=== PATIENT | female | born 1970 | race African-American/Black ===

== ENCOUNTER 2024-11-25 13:42 | Emergency (ER) | payer MEDICAID, SELFPAY ==
[2024-11-25] VITALS (15 sets, daily range): BP systolic 101–141; BP diastolic 56–93; PULSE 57–73; TEMP 36.4; O2SAT 96–100; BMI 35.5
--- NOTE | 2024-11-25 13:49 | ECG_ITS ---
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 Measurements Intervals [place] Rate: 69 P: 50 NV: 152 QRS: 83 QRSD: 90 T: 35 QT: 414 QTc: 433 Interpretive Statements 1100 Sinus rhythm 2420 RSR (QR) in lead V1/V2, consistent with right ventricular conduction delay 9130 borderline ECG No previous ECG available for comparison Electronically Signed On 11-26-2024 19:17:56 EDT by ROBIN MURPHY M.D.
--- NOTE | 2024-11-25 13:50 | ED_ITS ---
HPI - Chest Pain General Chief Complaint: Chest Pain Stated Complaint: CHEST PAIN Time Seen by Provider: 11/25/24 13:49 Source: patient Mode of arrival: walk-in History of Present Illness HPI narrative: Patient is a 54-year-old female brought to the emergency department by ambulance for the evaluation of chest pain that began 1 hour ago. She is currently a resident at an inpatient detox facility. She was in a group session when she de veloped pain in the chest that does not radiate. She reports that across the upper chest and retrosternal. She states it is worse with inspiration. She smokes about 3 cigarettes a day, she has cut down in the last month from 1 pack/day. She states she has a history of high cholesterol although she is not prescribed any medications for this. She states she takes a diuretic for swelling but does not have a history of high blood pressure. She reports a family history of coronary artery disease with her mother who was approximately the patient's age when she required a heart catheterization. Patient denies fevers, cough, congestion, shortness of breath, and she states that her peripheral edema to the legs has improved substantially with the diuretic. She received aspirin from EMS and 1 sublingual nitro which improved her pain from a 9 to 5 out of 10 Related Data Home Medications ?Medication ?Instructions ?Recorded ?Confirmed cariprazine 1.5 mg capsule 1.5 mg PO Q24H 11/25/24 11/25/24 (Vraylar) escitalopram oxalate 5 mg tablet 5 mg PO DAILY 11/25/24 11/25/24 folic acid 1 mg tablet 1 mg PO DAILY 11/25/24 11/25/24 levetiracetam 250 mg tablet 250 mg PO Q12H 11/25/24 11/25/24 omeprazole 20 mg capsule,delayed 20 mg PO DAILY 11/25/24 11/25/24 release thiamine HCl (vitamin B1) 100 mg 100 mg PO DAILY 11/25/24 11/25/24 tablet torsemide 20 mg tablet 40 mg PO DAILY 11/25/24 11/25/24 trazodone 50 mg tablet 50 mg PO DAILY 11/25/24 11/25/24 Previous Rx's ?Medication ?Instructions ?Recorded methylprednisolone 4 mg tablets in See Rx Instructions .Route 11/25/24 a dose pack (Medrol (Naveed)) .COMPLEX #21 ea Allergies Allergy/AdvReac Type Severity Reaction Status Date / Time No Known Drug Allergies Allergy Verified 11/25/24 13:50 Review of Systems ROS Constitutional Denies: fever or chills Ears, nose, mouth, and throat Denies: throat pain or nasal congestion Cardiovascular Reports: chest pain Respiratory Denies: shortness of breath or cough Gastrointestinal Denies: abdominal pain, nausea or vomiting Musculoskeletal Denies: back pain or neck pain Integumentary/Breast Denies: rash Neurological Denies: headache, numbness in extremities or weakness in extremities Hematologic/Lymphatic Denies: easy bruising or easy bleeding PFSH PFSH Medical History (Updated 11/25/24 @ 16:21 by BRIANNA Davis) History of high cholesterol ?Z86.39 - Personal history of other endocrine, nutritional and metabolic disease (ICD-10) Surgical History (Updated 11/25/24 @ 14:07 by Angel Rust) Hx of craniotomy ?Z98.890 - Other specified postprocedural states (ICD-10) Hx of gastric bypass ?Z98.84 - Bariatric surgery status (ICD-10) Hx of hysterectomy, total ?Z90.710 - Acquired absence of both cervix and uterus (ICD-10) Social History Little interest or pleasure in doing things: not at all Feeling down, depressed, or hopeless: not at all Exam Narrative Exam Narrative: Gen.: Awake, alert, in no distress Head: Normocephalic, atraumatic ENT: Moist mucous membranes Respiratory: No respiratory distress, lungs clear bilaterally Cardio: Regular rate and rhythm Gastrointestinal: Abdomen is soft, nondistended and nontender to palpation Extremities: Moves extremities equally, no pedal edema Psych: Normal mood and affect Neuro: No focal neuro deficit Skin: Warm, dry, intact Constitutional Vital Signs, click to edit/add: Last Vital Signs Temp 97.6 F 11/25/24 13:45 Pulse 60 11/25/24 15:15 Resp 19 11/25/24 15:15 BP 141/93 H 11/25/24 15:00 Pulse Ox 100 11/25/24 15:15 O2 Del Method Room Air 11/25/24 14:07 Course Vital Signs Vital signs: Vital Signs Temperature 97.6 F 11/25/24 13:45 Pulse Rate 71 11/25/24 13:45 Respiratory Rate 18 11/25/24 13:45 Blood Pressure 113/80 11/25/24 13:45 Pulse Oximetry 98 11/25/24 13:45 Oxygen Delivery Method Room Air 11/25/24 13:45 Temperature 97.6 F 11/25/24 13:45 Pulse Rate 60 11/25/24 15:15 Respiratory Rate 19 11/25/24 15:15 Blood Pressure 141/93 H 11/25/24 15:00 Pulse Oximetry 100 11/25/24 15:15 Oxygen Delivery Method Room Air 11/25/24 14:07 MDM - Chest Pain MDM Narrative Medical decision making narrative: Patient resting comfortably throughout her stay in the ER, she was given Solu- Medrol and Toradol for suspected pleuritic component. Patient had 2 EKGs, 2 troponins. She has a heart score of 3. Vital signs remained within normal limits. D-dimer and chest x-ray are unremarkable. Patient reevaluated by attending physician, she is discharged home to follow-up with PCP and return to the ER if symptoms change or worsen. Medrol Dosepak given for home. While in the ER she was noted to have mild hypokalemia, likely secondary to her diuretic and this was replaced orally. SHARED APC VISIT, PHYSICIAN ATTESTATION: Emtr-yn-eoad I performed a substantive part of the MDM during the patient?s E/M visit. I personally evaluated and examined the patient. I personally made or approved the documented management plan and acknowledge its risk of complications. Medical Records Data Attestation: I reviewed the patient's medical records. Lab Data Attestation: I reviewed the patient's lab results. Labs: Lab Results 11/25/24 11/25/24 Range/Units 13:55 15:44 WBC 7.7 (4.0-11.0) 10^3/uL RBC 4.70 (4.20-5.40) 10^6/uL Hgb 14.2 (12.0-16.0) g/dL Hct 42.3 (36.0-48.0) % MCV 90.0 (81.0-99.0) fL MCH 30.2 (26.7-34.0) pg MCHC 33.6 (29.9-35.2) g/dL RDW 13.3 (11.0-15.0) % Plt Count 271 (150-450) 10^3/uL MPV 9.4 L (9.5-13.5) fL Neut % (Auto) 65.6 (43.0-75.0) % Lymph % (Auto) 24.6 (20.5-60.0) % [place] % (Auto) 8.3 (1.7-12.0) % Eos % (Auto) 0.8 L (0.9-7.0) % Baso % (Auto) 0.4 (0.2-2.0) % Neut # (Auto) 5.1 (1.4-6.5) 10^3/uL Lymph # (Auto) 1.9 (1.2-3.8) 10^3/uL [place] # (Auto) 0.6 (0.3-0.8) 10^3/uL Eos # (Auto) 0.1 (0.0-0.7) 10^3/uL Baso # (Auto) 0.0 (0.0-0.1) 10^3/uL Abs Immat Gran (auto) 0.02 (0.00-0.03) 10^3/uL Imm/Tot Granulo (auto) 0.3 (0.0-0.5) % PT 11.4 (9.0-11.6) sec INR 1.08 D-Dimer 0.23 (<=0.59) mg/L FEU Sodium 142 (136-145) mmol/L Potassium 3.0 L (3.5-5.1) mmol/L Chloride 100 (98-107) mmol/L Carbon Dioxide 34.0 H (21.0-32.0) mmol/L Anion Gap 11.0 BUN 21.0 H (7.0-18.0) mg/dL Creatinine 1.09 H (0.55-1.02) mg/dL Est GFR ( Amer) >60 (>=60 mL/min/1.73m^2) Est GFR (Non-Af Amer) 53 L (>=60 mL/min/1.73m^2) BUN/Creatinine Ratio 19.3 Glucose 77 (74-106) mg/dL Calcium 9.2 (8.5-10.1) mg/dL Total Bilirubin 0.3 (0.2-1.0) mg/dL AST 25 (15-37) U/L ALT 68 H (14-59) U/L Alkaline Phosphatase 129 H (46-116) U/L Troponin I High Sens 4.4 6.6 (4.0-51.3) pg/mL NT-Pro-B Natriuret Pep 35.0 (<=900.0) pg/mL Total Protein 7.5 (6.4-8.2) g/dL Albumin 3.8 (3.4-5.0) g/dL Globulin 3.7 g/dL Albumin/Globulin Ratio 1.0 Lipase 80.0 H (16.0-77.0) U/L Imaging Data Chest x-ray: Attestation: I have reviewed the pertinent imaging results. ECG Data Attestation: I personally reviewed and interpreted this ECG as follows: (Normal sinus rhythm at a rate of 69, no acute ST elevation or ectopy. EKG reviewed by attending physician) Heart Score History: Slightly/Non-Suspicious ECG: Normal Age: >45-<65 years Risk Factors: >3 Risk Factors/ HX of CAD:2 Troponin: <Normal Limit Total Heart Score Recommendations & Risks:: 3 Discharge Plan Discharge Chief Complaint: Chest Pain Clinical Impression: Chest pain Patient Disposition: Home, Self-Care Time of Disposition Decision: 16:21 Condition: Good Prescriptions / Home Meds: New methylprednisolone [Medrol (Naveed)] 4 mg tablets,dose pack See Rx Instructions .ROUTE .COMPLEX Qty: 21 0RF Rx Instructions: Taper as directed No Action torsemide 20 mg tablet 40 mg PO DAILY levetiracetam 250 mg tablet 250 mg PO Q12H thiamine HCl (vitamin B1) 100 mg tablet 100 mg PO DAILY folic acid 1 mg tablet 1 mg PO DAILY Vraylar 1.5 mg capsule 1.5 mg PO Q24H escitalopram oxalate 5 mg tablet 5 mg PO DAILY trazodone 50 mg tablet 50 mg PO DAILY omeprazole 20 mg capsule,delayed release(DR/EC) 20 mg PO DAILY Print Language: Irish Instructions: Chest Pain (ED) Referrals: Physician,Non-Staff, MD [Primary Care Provider] - 1 week
[2024-11-25] MEDS: KETOROLAC TROMETHAMINE 30 MG/ML VIAL IVP (14:01)
[2024-11-25] MEDS: METHYLPREDNISOLONE SOD SUCC PF 125 MG/2 ML VIAL IVP (14:01)
[2024-11-25 14:03] LABS: Basophils Percent Auto 0.4 % (0.2-2.0); Eosinophils Absolute Auto 0.1 10^3/uL (0.0-0.7); Eosinophils Percent Auto 0.8 % (0.9-7.0); Hematocrit 42.3 % (36.0-48.0); Hemoglobin 14.2 g/dL (12.0-16.0); Immature Granulocytes Abs Auto 0.02 10^3/uL (0.00-0.03); Immature Granulocytes Pct Auto 0.3 % (0.0-0.5); Lymphocytes Absolute Auto 1.9 10^3/uL (1.2-3.8); Lymphocytes Percent Auto 24.6 % (20.5-60.0); Mean Corpuscular HGB Conc 33.6 g/dL (29.9-35.2); Mean Corpuscular Hemoglobin 30.2 pg (26.7-34.0); Mean Platelet Volume 9.4 fL (9.5-13.5); Monocytes Absolute Auto 0.6 10^3/uL (0.3-0.8); Monocytes Percent Auto 8.3 % (1.7-12.0); Neutrophils Absolute Auto 5.1 10^3/uL (1.4-6.5); Neutrophils Percent Auto 65.6 % (43.0-75.0); Platelet Count 271 10^3/uL (150-450); Red Cell Distribution Width 13.3 % (11.0-15.0); White Blood Count 7.7 10^3/uL (4.0-11.0)
[2024-11-25 14:20] LABS: Alanine Aminotransferase 68 U/L (14-59); Albumin Level 3.8 g/dL (3.4-5.0); Alkaline Phosphatase 129 U/L (46-116); Aspartate Amino Transferase 25 U/L (15-37); BUN Creatinine Ratio 19.3; Bilirubin Total 0.3 mg/dL (0.2-1.0); Calcium 9.2 mg/dL (8.5-10.1); Chloride 100 mmol/L (98-107); Estimated GFR (African America >60 (>=60 mL/min/1.73m^2); Estimated GFR (Non-African Ame 53 (>=60 mL/min/1.73m^2); Globulin 3.7 g/dL; Glucose 77 mg/dL (74-106); Sodium 142 mmol/L (136-145); Total Protein 7.5 g/dL (6.4-8.2)
[2024-11-25 14:23] LABS: D Dimer 0.23 mg/L FEU (<=0.59); INR 1.08; Prothrombin Time 11.4 sec (9.0-11.6)
[2024-11-25 14:32] LABS: Troponin I High Sensitivity 4.4 pg/mL (4.0-51.3)
[2024-11-25] MEDS: POTASSIUM CHLORIDE 10 MEQ ER TABLET 40 MEQ PO (14:38)
--- NOTE | 2024-11-25 15:46 | ECG_ITS ---
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 Measurements Intervals [place] Rate: 58 P: 87 SD: 154 QRS: 85 QRSD: 94 T: 59 QT: 454 QTc: 452 Interpretive Statements 1100 Sinus rhythm 8304 Long QTc interval 9150 abnormal ECG Compared to ECG 11/25/2024 13:50:06 No significant changes Electronically Signed On 11-26-2024 19:19:09 EDT by ROBIN MURPHY M.D.
[2024-11-25 16:11] LABS: Troponin I High Sensitivity 6.6 pg/mL (4.0-51.3)
== END 2024-11-25 16:59 | disposition home or self-care (01) ==
PROVIDERS: Physician Assistant; Emergency Provider Emergency Medicine
DX: R07.9 Chest pain, unspecified (principal); F17.210 Nicotine dependence, cigarettes, uncomplicated; E87.6 Hypokalemia; Z82.49 Family history of ischemic heart disease and other diseases of the circulatory system; Z98.84 Bariatric surgery status; Z90.710 Acquired absence of both cervix and uterus
CPT/HCPCS: 36415; 71045; 80053; 83690; 83880; 84484; 85025; 85378; 85610; 93005; 96374; 96375; 99285; J1885; J2919

== ENCOUNTER 2025-05-27 18:21 | Emergency (ER) | payer MEDICAID, SELFPAY ==
[2025-05-27 18:27] VITALS: BP 129/83; PULSE 77; TEMP 37.1; O2SAT 98; BMI 36.2
[2025-05-27 18:29] VITALS: O2SAT 98
[2025-05-27 18:30] VITALS: BP 129/83; O2SAT 99
--- NOTE | 2025-05-27 18:30 | ECG_ITS ---
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 Measurements Intervals [place] Rate: 64 P: 50 NV: 156 QRS: 77 QRSD: 88 T: 57 QT: 414 QTc: 424 Interpretive Statements 1100 Sinus rhythm 9110 normal ECG No previous ECG available for comparison Electronically Signed On 05-29-2025 10:22:45 EDT by ROBIN MURPHY M.D.
[2025-05-27 18:51] LABS: Hematocrit 38.9 % (36.0-48.0); Hemoglobin 13.0 g/dL (12.0-16.0); Immature Granulocytes Abs Auto 0.01 10^3/uL (0.00-0.03); Immature Granulocytes Pct Auto 0.1 % (0.0-0.5); Lymphocytes Absolute Auto 2.0 10^3/uL (1.2-3.8); Mean Corpuscular HGB Conc 33.4 g/dL (29.9-35.2); Mean Corpuscular Hemoglobin 28.4 pg (26.7-34.0); Mean Corpuscular Volume 85.1 fL (81.0-99.0); Platelet Count 247 10^3/uL (150-450); Red Blood Count 4.57 10^6/uL (4.20-5.40); White Blood Count 7.3 10^3/uL (4.0-11.0)
[2025-05-27] MEDS: 0.9 % SODIUM CHLORIDE 1,000 ML 999 ML IV (18:55)
[2025-05-27 19:00] VITALS: PULSE 60
[2025-05-27 19:11] LABS: Alanine Aminotransferase 21 U/L (14-59); Albumin Globulin Ratio 1.0; Albumin Level 3.6 g/dL (3.4-5.0); Alkaline Phosphatase 124 U/L (46-116); Anion Gap 9.0; Aspartate Amino Transferase 14 U/L (15-37); Blood Urea Nitrogen 15.0 mg/dL (7.0-18.0); Calcium 8.8 mg/dL (8.5-10.1); Carbon Dioxide 31.2 mmol/L (21.0-32.0); Chloride 102 mmol/L (98-107); Estimated GFR (African America >60 (>=60 mL/min/1.73m^2); Estimated GFR (Non-African Ame 59 (>=60 mL/min/1.73m^2); Globulin 3.6 g/dL; Glucose 96 mg/dL (74-106); Magnesium 1.9 mg/dL (1.8-2.4); Potassium 4.2 mmol/L (3.5-5.1); Sodium 138 mmol/L (136-145); Total Protein 7.2 g/dL (6.4-8.2)
[2025-05-27 19:30] VITALS: PULSE 57
--- NOTE | 2025-05-27 20:07 | ED.RECABL1 ---
HPI - Recheck/Abnormal Lab/Rx General Chief Complaint: Recheck/Abnormal Lab/Rx Stated Complaint: POTASSIUM IS TOO HIGH Time Seen by Provider: 05/27/25 18:33 Source: patient Mode of arrival: walk-in History of Present Illness HPI narrative: 54-year-old female presents to the ED for recheck of her potassium. She is currently in alcohol rehab at [facility] and was told her potassium was >6. She was sent to the ED for further evaluation and treatment. Patient denies any symptoms including headache, fever, chills, chest pain, shortness of breath, abdominal pain, nausea, vomiting, diarrhea, or weakness. Pertinent history includes diabetes (recently started metformin) and use of furosemide for lower extremity swelling. She denies cardiac history. She has already completed alcohol detox at [facility]. Related Data Allergies Allergy/AdvReac Type Severity Reaction Status Date / Time No Known Drug Allergies Allergy Verified 05/27/25 18:30 PFSH PFSH Social History Little interest or pleasure in doing things: not at all Feeling down, depressed, or hopeless: not at all Exam Narrative Exam Narrative: Physical Exam: General: Alert, oriented, pleasant, no acute distress Vital Signs: Stable Neuro: No focal deficits Cardiac: Regular rate and rhythm, no murmurs Respiratory: Lungs clear to auscultation bilaterally Abdomen: Soft, nondistended, nontender, active bowel sounds Extremities: No gross edema, pulses intact Constitutional Vital Signs, click to edit/add: Last Vital Signs Temp 98.7 F 05/27/25 18:27 Pulse 57 L 05/27/25 19:30 Resp 19 05/27/25 19:30 BP 129/83 05/27/25 18:30 Pulse Ox 99 05/27/25 18:30 O2 Del Method Room Air 05/27/25 18:27 Course Vital Signs Vital signs: Vital Signs Temperature 98.7 F 05/27/25 18:27 Pulse Rate 77 05/27/25 18:27 Respiratory Rate 18 05/27/25 18:27 Blood Pressure 129/83 05/27/25 18:27 Pulse Oximetry 98 05/27/25 18:27 Oxygen Delivery Method Room Air 05/27/25 18:27 Temperature 98.7 F 05/27/25 18:27 Pulse Rate 57 L 05/27/25 19:30 Respiratory Rate 19 05/27/25 19:30 Blood Pressure 129/83 05/27/25 18:30 Pulse Oximetry 99 05/27/25 18:30 Oxygen Delivery Method Room Air 05/27/25 18:27 MDM - Recheck/Abnormal Lab/Rx MDM Narrative Medical decision making narrative: Patient was sent from rehab for evaluation of hyperkalemia after being told her potassium was >6. She is asymptomatic with stable vitals and normal exam. Repeat labs today show potassium 4.2 with no significant abnormalities, making true hyperkalemia unlikely. Likely explanation is a spurious result due to hemolyzed sample. No evidence of cardiac arrhythmia, neuromuscular weakness, or acute illness. Given reassuring labs and clinical stability, no acute intervention required. Patient counseled on importance of follow-up with PCP for ongoing monitoring and diabetes management. She is safe for discharge back to rehab with return precautions discussed. Diagnostics: Labs: Potassium 4.2 mmol/L, other labs unremarkable Assessment: Hyperkalemia (ruled out) ? likely spurious lab result, possibly secondary to hemolysis Plan: Patient reassured regarding normal potassium Education provided on importance of PCP follow-up and diabetes management Patient stable for discharge and to return to [facility] for ongoing rehab care Discharge Instructions: Follow up with primary care provider within 1 week for repeat labs and diabetes management Continue metformin as prescribed Return to ED for chest pain, palpitations, muscle weakness, numbness/tingling, or any concerning symptoms Medical Records Attestation: I reviewed the patient's medical records. Lab Data Attestation: I reviewed the patient's lab results. Labs: Lab Results 05/27/25 Range/Units 18:45 WBC 7.3 (4.0-11.0) 10^3/uL RBC 4.57 (4.20-5.40) 10^6/uL Hgb 13.0 (12.0-16.0) g/dL Hct 38.9 (36.0-48.0) % MCV 85.1 (81.0-99.0) fL MCH 28.4 (26.7-34.0) pg MCHC 33.4 (29.9-35.2) g/dL RDW 17.5 H (11.0-15.0) % Plt Count 247 (150-450) 10^3/uL MPV 9.4 L (9.5-13.5) fL Neut % (Auto) 62.0 (43.0-75.0) % Lymph % (Auto) 27.0 (20.5-60.0) % [place] % (Auto) 9.7 (1.7-12.0) % Eos % (Auto) 0.8 L (0.9-7.0) % Baso % (Auto) 0.4 (0.2-2.0) % Neut # (Auto) 4.5 (1.4-6.5) 10^3/uL Lymph # (Auto) 2.0 (1.2-3.8) 10^3/uL [place] # (Auto) 0.7 (0.3-0.8) 10^3/uL Eos # (Auto) 0.1 (0.0-0.7) 10^3/uL Baso # (Auto) 0.0 (0.0-0.1) 10^3/uL Abs Immat Gran (auto) 0.01 (0.00-0.03) 10^3/uL Imm/Tot Granulo (auto) 0.1 (0.0-0.5) % Sodium 138 (136-145) mmol/L Potassium 4.2 (3.5-5.1) mmol/L Chloride 102 (98-107) mmol/L Carbon Dioxide 31.2 (21.0-32.0) mmol/L Anion Gap 9.0 BUN 15.0 (7.0-18.0) mg/dL Creatinine 0.98 (0.55-1.02) mg/dL Est GFR ( Amer) >60 (>=60 mL/min/1.73m^2) Est GFR (Non-Af Amer) 59 L (>=60 mL/min/1.73m^2) BUN/Creatinine Ratio 15.3 Glucose 96 (74-106) mg/dL Calcium 8.8 (8.5-10.1) mg/dL Magnesium 1.9 (1.8-2.4) mg/dL Total Bilirubin 0.3 (0.2-1.0) mg/dL AST 14 L (15-37) U/L ALT 21 (14-59) U/L Alkaline Phosphatase 124 H (46-116) U/L Total Protein 7.2 (6.4-8.2) g/dL Albumin 3.6 (3.4-5.0) g/dL Globulin 3.6 g/dL Albumin/Globulin Ratio 1.0 Discharge Plan Discharge Chief Complaint: Recheck/Abnormal Lab/Rx Clinical Impression: No problem, feared complaint unfounded, History of alcohol use, Examination for, laboratory Patient Disposition: Home, Self-Care Time of Disposition Decision: 20:14 Condition: Good Print Language: Belarusian Additional Instructions: Reason for Visit: Recheck of potassium (blood test result) What We Found: Your potassium level today is normal at 4.2. There are no concerning abnormalities on your labs. The high potassium level you were told about yesterday was likely a false result (this can happen if blood cells break during the lab draw, which is called hemolysis ). What We Did Today: Checked your labs again and confirmed potassium is normal. No treatment was needed today. Next Steps / Follow-Up: Follow up with your primary care provider within 1 week for routine lab recheck and to discuss your diabetes management. Continue taking your metformin and other home medications as prescribed. Stay hydrated and eat a balanced diet unless your doctor has you on a special diet. When to Return to the ER: If you experience chest pain, irregular heartbeat, severe muscle weakness, numbness, confusion, or fainting If you have vomiting, diarrhea, or cannot keep food or liquids down If you feel very unwell or have any new or concerning symptoms Referrals: Physician,Non-Staff, MD [Primary Care Provider] - 1 week Discharge Date/Time: 05/27/25 20:25
== END 2025-05-27 20:25 | disposition home or self-care (01) ==
PROVIDERS: Physician Assistant; Emergency Provider Emergency Medicine
DX: Z71.1 Person with feared health complaint in whom no diagnosis is made (principal); E11.9 Type 2 diabetes mellitus without complications; Z79.84 Long term (current) use of oral hypoglycemic drugs; F10.90 Alcohol use, unspecified, uncomplicated
CPT/HCPCS: 36415; 80053; 81001; 83735; 85025; 93005; 99285